=== PATIENT | male | born 1960 | race Caucasian/White ===

== ENCOUNTER 2016-10-13 17:14 | Emergency (ER) | payer OTHER ==
--- NOTE | 2016-10-13 17:50 | ERPHSYRPT ---
- History of Present Illness Time Seen by Provider: 10/13/16 17:43 Source: patient Exam Limitations: no limitations Patient Subjective Stated Complaint: spider bite last night Triage Nursing Assessment: pt states he got bit in his [place] area last night by a spider--did not see the spider. swelling noted to end of penis but no increased redness noted to where he is saying he was bit. appears very nervous and drowsy and is in constant movment with all extremities Physician History: The patient is a 55-year-old male who comes in complaining that he was bitten by an insect or spider while he was in bed last night on the distal part of his penis. It is slightly swollen and itches. He has been taking Benadryl and it is better. A friend of his nurse. She looked at it and told him to come to the emergency room. He also has chronic back pain from a Workmen's Comp. injury and is requesting pain medicine. Timing/Duration: yesterday Quality: itchy Severity: mild Location: genitalia Possible Causes: no cause identified Modifying Factors: Improves With: antihistamine Allergies/Adverse Reactions: acetaminophen [From Percocet] Allergy (Mild, Verified 10/13/16 17:33) uncontrolled itching morphine Allergy (Mild, Verified 10/13/16 17:33) Hives oxycodone HCl [From Percocet] Allergy (Mild, Verified 10/13/16 17:33) uncontrolled itching propoxyphene napsylate [From Darvocet-N 100] Allergy (Mild, Verified 10/13/16 17 :33) Itching pt says not allergic to Home Medications: Tramadol HCl 50 mg [Ultram 50 mg] 50 mg PO QID 10/13/16 [History] Hx Tetanus, Diphtheria Vaccination/Date Given: Yes Hx Influenza Vaccination/Date Given: No Hx Pneumococcal Vaccination/Date Given: No Immunizations Up to Date: Yes - Review of Systems Constitutional: No Fever, No Chills Eyes: No Symptoms Ears, Nose, & Throat: No Symptoms Respiratory: No Cough, No Dyspnea Cardiac: No Chest Pain, No Edema, No Syncope Abdominal/Gastrointestinal: No Abdominal Pain, No Nausea, No Vomiting, No Diarrhea Genitourinary Symptoms: No Dysuria Musculoskeletal: No Back Pain, No Neck Pain Skin: Rash Neurological: No Dizziness, No Focal Weakness, No Sensory Changes Psychological: No Symptoms Endocrine: No Symptoms Hematologic/Lymphatic: No Symptoms Immunological/Allergic: No Symptoms All Other Systems: Reviewed and Negative - Past Medical History Pertinent Past Medical History: Yes Neurological History: No Pertinent History ENT History: No Pertinent History Cardiac History: No Pertinent History Respiratory History: No Pertinent History Endocrine Medical History: No Pertinent History Musculoskeletal History: Fractures GI Medical History: No Pertinent History History: Other Psycho-Social History: Depression Male Reproductive Disorders: No Pertinent History Other Medical History: chronic pain-reflex sympathetic distosrophy. blood in urine-no diagnosis or issues. 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 bilateral arm fx 2006 - Past Surgical History Past Surgical History: Yes Neuro Surgical History: No Pertinent History Cardiac: No Pertinent History Respiratory: No Pertinent History Gastrointestinal: Hernia Repair Genitourinary: No Pertinent History Musculoskeletal: Orthopedic Surgery Male Surgical History: No Pertinent History Other Surgical History: sinus, Right carpal tunnel ,t&a - Social History Smoking Status: Current every day smoker How long have you smoked: 30 Exposure to second hand smoke: No Drug Use: none Patient Lives Alone: Yes - Nursing Vital Signs Nursing Vital Signs: Initial Vital Signs Temperature 98.3 F Temperature Source Oral Pulse Rate 106 Respiratory Rate 18 Blood Pressure [Right Arm] 141/88 Pain Intensity 6 - Physical Exam General Appearance: no apparent distress, alert Eye Exam: PERRL/EOMI, eyes nml inspection Ears, Nose, Throat Exam: normal ENT inspection, pharynx normal, moist mucous membranes Neck Exam: normal inspection, non-tender, supple, full range of motion Respiratory Exam: normal breath sounds, lungs clear, No respiratory distress Cardiovascular Exam: regular rate/rhythm, normal heart sounds Gastrointestinal/Abdomen Exam: soft, mass, No tenderness Rectal Exam: not done Back Exam: normal inspection, normal range of motion, No CVA tenderness, No vertebral tenderness Extremity Exam: normal inspection, normal range of motion Neurologic Exam: alert, oriented x 3, cooperative, normal mood/affect, sensation nml, No motor deficits Skin Exam: other (Examination of the penis reveals an uncircumcised male with a slightly swollen and reddish foreskin with a small puncture wound consistent with an insect or arachnid bite.) - Departure Time of Disposition: 17:54 Departure Disposition: Home Clinical Impression: Insect bite, Back pain Condition: Stable Critical Care Time: No Additional Instructions: You have a possible insect bite to your genitalia. The area is red and swollen. You've been given a prescription for amoxicillin 500 mg 3 times a day for 10 days. Continue to take Benadryl as needed. He also have a complaint of back pain for which she were given Toradol 60 mg IM injection in the ER. Follow -up as needed. Prescriptions: Amoxicillin [Amoxil] 1 cap PO TID #30 capsule
[2016-10-13] MEDS ORDERED: TORAdol 30 mg Injection IM ONE (17:56)
[2016-10-13] MEDS ORDERED: TORAdol 30 mg Injection ONE (17:59)
[2016-10-13 18:11] VITALS: BP 132/70; PULSE 70; O2SAT 100
== END 2016-10-13 18:11 | disposition home or self-care (01) ==
LOC: ED 17:14
DX: S30.862A Insect bite (nonvenomous) of penis, initial encounter (principal); T63.301A Toxic effect of unspecified spider venom, accidental (unintentional), initial encounter
CPT/HCPCS: 96372; 99281; 99284; J1885

== ENCOUNTER 2017-12-03 08:55 | Day surgery (SDC) | payer OTHER ==
--- NOTE | 2017-12-03 08:20 | HP ---
DATE OF SURGERY: 12/03/2017 HISTORY OF PRESENT ILLNESS: The patient is a 56 year-old with history of polyps. No bloody stools. No change in bowel movements. No pain. He is in need of follow up screening colonoscopy. PAST MEDICAL/SURGICAL HISTORY: Biopsy of tongue lesion in October. He had a [place] in the past. Carpal tunnel and hernia repair and colonoscopy in the past. MEDICATIONS: Omeprazole, citalopram, lisinopril, acyclovir, hydrochlorothiazide, Simvastatin, loratadine, Naproxen, Symbicort, triamcinolone and Nystatin. ALLERGIES: MORPHINE, PERCOCET, ACETAMINOPHEN. FAMILY HISTORY: Lung cancer, lupus, thyroid problems. SOCIAL HISTORY: One pack per day smoker. No alcohol abuse. REVIEW OF SYSTEMS: Twelve systems reviewed. No chest pain or palpitations other systems negative or noncontributory as above and per preadmission questionnaire. Pertinent for lung disease, smoking, tension, anxiety, depression, reflux, hypercholesterolemia and hypertension. PHYSICAL EXAMINATION: GENERAL: No acute distress. HEENT: Sclerae nonicteric. NECK: No JVD. CHEST: Equal excursion, nonlabored breathing. CVS: Regular rate and rhythm. ABDOMEN: Soft. No peritoneal signs. EXTREMITIES: No significant edema. NEURO: Alert, oriented, moving extremities symmetrically. No gross motor deficits noted. IMPRESSION: History of polyps, need for follow up screening colonoscopy. I feel he is a candidate. Risks and benefits explained in detail including but not limited to bleeding or infection, small risk of bowel injury or perforation possibly requiring open procedure, risk of missed or nondiagnosis or incomplete exam possibly requiring barium, other studies or procedures, general risk of anesthesia or sedation, risk of bowel prep, postoperative risk of nausea or cramping but not limited to. He understands and agrees to the planned procedure. He has been shown the risk sheet and explained the procedure as mentioned above but not limited to, will proceed with outpatient follow up colonoscopy.
[2017-12-03] MEDS ORDERED: DIPRIVAN 200 MG/20 ML IV ONE (08:56)
[2017-12-03] MEDS ORDERED: Ketamine HCl 50 MG/ML IV ONE (08:56)
[2017-12-03] MEDS ORDERED: Lactated Ringers 1,000 ML IV ONE (09:36)
[2017-12-03] MEDS ORDERED: Lactated Ringers 1,000 ML IV SCH (10:00)
[2017-12-03 12:57] VITALS: BP 113/68; PULSE 89; O2SAT 98
--- NOTE | 2017-12-03 13:40 | OP ---
SURGERY DATE/TIME: 12/03/2017 1050 PREOPERATIVE DIAGNOSIS: History of prior polyps, need for follow up screening colonoscopy. POSTOPERATIVE DIAGNOSES: 1) Poor prep limiting particularly right colon limiting the exam. 2) Mild diverticulosis. 3) Small internal and external hemorrhoids. 4) Very small vague raised lesion versus hyperplastic lesion rectum with nearby adjacent small patchy inflamed area. 5) Prior repair and tattoo sites with normal appearing mucosa. No evidence of past polyp recurrence. PROCEDURES: 1) Colonoscopy to cecum with hot biopsy small vague raised lesion rectum. 2) Cold biopsy of adjacent patchy area of inflammation. SURGEON: Dr. Dean Nelson. ANESTHESIA: MAC. ESTIMATED BLOOD LOSS: Minimal. INDICATIONS: As noted above. Risks and benefits explained in detail but not limited to and consent obtained. DESCRIPTION OF PROCEDURE AND FINDINGS: The patient is taken to the operating room. After official time out and no disagreement with planned procedure, MAC anesthesia induced. Digital rectal exam did not reveal any rectal masses. Video colonoscope inserted and passed up through the tortuous sigmoid, descending, transverse colon. With positioning on his back and external pressure the scope was able to be passed around to the cecum, appendiceal orifice and valve visualized. Prep overall was somewhat poor in the right colon. A large amount of liquidy semi-solid and solid stool limiting the exam this was suction irrigated as well as possible but did limit the exam for small lesions. On slow careful withdrawal of the scope over the next 12 to 15 minutes there were no signs of any large polyps, masses or obstructing lesions. He had what appeared to be some tattoo sites in the left colon that appeared to have normal mucosa, no evidence of any polyp recurrence. Otherwise the scope pulled back. He had some internal and external hemorrhoids. He did have some mild diverticulosis. Back in the rectum he had a very small 1.5 mm to 2 mm vague raised lesion this is removed with hot biopsy forceps with brief bursts of cautery. Good hemostasis noted. There was a nearby patchy area of inflammation whether simple prep irritation or not it is cold biopsied for further evaluation. Good hemostasis noted. Again, he had some small internal and external hemorrhoids. The scope is withdrawn. There was no family available to discuss the findings with. I will see him back in the office next week to go over the results.
== END 2017-12-03 12:35 | disposition home or self-care (01) ==
LOC: SDC 08:55
PROVIDERS: ATTEND Surgery
DX: Z86.010 Personal history of colon polyps (principal); K57.90 Diverticulosis of intestine, part unspecified, without perforation or abscess without bleeding; K64.8 Other hemorrhoids; K64.4 Residual hemorrhoidal skin tags; Z12.11 Encounter for screening for malignant neoplasm of colon; K63.9 Disease of intestine, unspecified; Z79.899 Other long term (current) drug therapy; Z72.0 Tobacco use
CPT/HCPCS: 88305; J2704

== ENCOUNTER 2019-09-10 20:15 | Emergency (ER) | payer OTHER ==
--- NOTE | 2019-09-10 20:25 | ERPHSYRPT ---
- History of Present Illness Time Seen by Provider: 09/10/19 20:25 Source: patient Exam Limitations: no limitations Physician History: 58-year-old gentleman who has a history of depression and is suicidal. Patient states that he has not seen his medical doctor in several months. Patient states that he is tired of living. His plan is that he is getting jumped out in front of a train. Patient did attempt suicide several years ago by overdosing. Patient has been using methamphetamines recently. Patient states he has been lying to the people around him that have been trying to help him. Patient desires inpatient help in a facility in [facility]. Timing/Duration: intermittent, worse Severity of Symptoms-Max: moderate Severity of Symptoms-Current: moderate Context related to: living circumstances, other (Amphetamine abuse, illicit drug abuse) Suicidal thoughts: specific plan Associated Symptoms: depressed, frustrated, suicidal ideation Previous symptoms: same symptoms as today Allergies/Adverse Reactions: acetaminophen [From Percocet] Allergy (Mild, Verified 09/10/19 23:02) uncontrolled itching morphine Allergy (Mild, Verified 09/10/19 23:02) Hives oxycodone HCl [From Percocet] Allergy (Mild, Verified 09/10/19 23:02) uncontrolled itching propoxyphene napsylate [From Darvocet-N 100] Allergy (Mild, Verified 09/10/19 23 :02) Itching pt says not allergic to Home Medications: Budesonide/Formoterol Fumarate [Symbicort 160-4.5 Mcg Inhaler] 10.2 gm IH BID [History] Citalopram Hydrobromide [Citalopram HBr] 20 mg PO DAILY 11/21/17 [History] Lisinopril 10 mg [Zestril 10 MG] 10 mg PO DAILY 11/21/17 [History] Loratadine 10 mg [Claritin 10 mg] 10 mg PO DAILY 11/21/17 [History] Omeprazole 40 mg PO DAILY 11/21/17 [History] Simvastatin 20Mg [Zocor 20Mg] 20 mg PO DAILY 11/21/17 [History] Triamcinolone Acetonide 0.1% [Kenalog 0.1% Ointment] 15 gm TP DAILY [History] hydroCHLOROthiazide [Hydrochlorothiazide] 12.5 mg PO DAILY 11/21/17 [History] Hx Tetanus, Diphtheria Vaccination/Date Given: Yes Hx Influenza Vaccination/Date Given: No Hx Pneumococcal Vaccination/Date Given: No - Past Medical History Pertinent Past Medical History: Yes Neurological History: Migraines ENT History: No Pertinent History Cardiac History: High Cholesterol, Hypertension Respiratory History: COPD Endocrine Medical History: No Pertinent History Musculoskeletal History: Fractures GI Medical History: Esophageal Disorder, GERD, Hemorrhoids, Hernia, Polyps, Ulcer History: Other Psycho-Social History: Depression Male Reproductive Disorders: Scrotal Mass, Other Other Medical History: rsd,spine disc injections, semi accident 2014,. 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 bilateral arm fx 2005 - Past Surgical History Past Surgical History: Yes Neuro Surgical History: No Pertinent History Cardiac: No Pertinent History Respiratory: No Pertinent History Gastrointestinal: Hernia Repair Genitourinary: No Pertinent History Musculoskeletal: Orthopedic Surgery Male Surgical History: No Pertinent History Other Surgical History: sinus, Right carpal tunnel ,t&a, scotol-right testicle "rebuilt" per pt. Groin and testicular hernia repaired per pt. - Social History Smoking Status: Current every day smoker How long have you smoked: 38 Exposure to second hand smoke: Yes Drug Use: marijuana, methamphetamines, cocaine Patient Lives Alone: Yes - Review of Systems Constitutional: No Symptoms Eyes: No Symptoms Ears, Nose, & Throat: No Symptoms Respiratory: No Symptoms Cardiac: No Symptoms Abdominal/Gastrointestinal: No Symptoms Genitourinary Symptoms: No Symptoms Musculoskeletal: No Symptoms Skin: No Symptoms Neurological: No Symptoms Psychological: Drug Abuse, Anxiety, Depression, Suicidal Ideations Endocrine: No Symptoms Hematologic/Lymphatic: No Symptoms Immunological/Allergic: No Symptoms All Other Systems: Reviewed and Negative - Nursing Vital Signs Nursing Vital Signs: Initial Vital Signs Temperature 97.8 F 09/10/19 20:27 Pulse Rate 107 H 09/10/19 20:27 Respiratory Rate 18 09/10/19 20:27 Blood Pressure 166/107 09/10/19 20:27 O2 Sat by Pulse Oximetry 96 09/10/19 20:27 Pain Scale Pain Intensity 3 - Physical Exam General Appearance: no apparent distress, alert, anxiety Eyes, Ears, Nose, Throat Exam: normal ENT inspection, moist mucous membranes Neck Exam: normal inspection, non-tender, supple, full range of motion Respiratory Exam: normal breath sounds, lungs clear, airway intact, No chest tenderness, No respiratory distress Cardiovascular Exam: regular rate/rhythm, normal heart sounds, normal peripheral pulses Gastrointestinal/Abdominal Exam: soft, normal bowel sounds, No tenderness, No guarding Extremities Exam: normal inspection, normal range of motion, No evidence of injury Current Suicidality: has suicide plan Neurological Exam: alert (In front of a train), normal mood/affect, calm, [employer] II -XII nml as tested, oriented x 3 Appearance: appropriate appearance, appropriate insight, no memory impairment Behavior/Eye Contact/Speech: alert & cooperative, good eye contact, normal speech Thoughts/Hallucinations: normal thought pattern, no apparent hallucination Skin Exam: normal color, warm, dry SpO2 Interpretation: normal O2 Delivery: Room Air - Course Nursing assessment & vital signs reviewed: Yes EKG Interpreted by Me: RATE (103), Sinus Rhythm, Sinus Tach, NORMAL AXIS, NORMAL INTERVALS, NORMAL QRS Ordered Tests: Active Orders 24 hr Category Date Time Status EKG-ER Only STAT Care 09/10/19 20:26 Active Psychiatric Consult STAT Cons 09/10/19 20:26 Active ACETAMINOPHEN Stat Lab 09/10/19 20:35 Completed CBC W DIFF Stat Lab 09/10/19 20:35 Completed CMP Stat Lab 09/10/19 20:35 Completed ETHYL ALCOHOL Stat Lab 09/10/19 20:35 Completed SALICYLATE Stat Lab 09/10/19 20:35 Completed UA W/RFX UR CULTURE Stat Lab 09/10/19 21:00 Completed Urine Triage Profile Stat Lab 09/10/19 21:00 Completed Medication Summary Discontinued Medications Generic Name Dose Route Start Last Admin Trade Name Freddie PRN Reason Stop Dose Admin Clonidine 0.2 mg 09/10/19 22:20 09/10/19 22:35 Catapres 0.1 Mg PO 09/10/19 22:21 0.2 mg STAT ONE Administration Clonidine Confirm 09/10/19 22:33 Catapres 0.1 Mg Administered 09/10/19 22:34 Dose 0.2 mg .ROUTE .STK-MED ONE Lorazepam 1 mg 09/10/19 21:20 09/10/19 21:40 Ativan 2 Mg/1 Ml Vial IM 09/10/19 21:21 1 mg STAT ONE Administration Lorazepam Confirm 09/10/19 21:36 Ativan 2 Mg/1 Ml Vial Administered 09/10/19 21:37 Dose 2 mg .ROUTE .STK-MED ONE Lab/Rad Data: Laboratory Result Diagrams 09/10/19 20:35 09/10/19 20:35 Laboratory Results 09/10/19 09/10/19 09/10/19 Range/Units 21:00 21:00 20:35 WBC (4.0-10.5) K/mm3 RBC (4.1-5.6) M/mm3 Hgb (12.5-18.0) gm/dl Hct (42-50) % MCV (78-100) fl MCH (26-32) pg MCHC (32-36) g/dl RDW (11.5-14.0) % Plt Count (150-450) K/mm3 MPV (7.5-11.0) fl Gran % (36.0-66.0) % Eos # (Auto) (0-0.5) Absolute Lymphs (auto) (1.0-4.6) Absolute Monos (auto) (0.0-1.3) Lymphocytes % (24.0-44.0) % Monocytes % (0.0-12.0) % Eosinophils % (0.00-5.0) % Basophils % (0.0-0.4) % Absolute Granulocytes (1.4-6.9) Basophils # (0-0.4) Sodium 140 (137-145) mmol/L Potassium 4.0 (3.5-5.1) mmol/L Chloride 106 (98-107) mmol/L Carbon Dioxide 26 (22-30) mmol/L Anion Gap 11.5 (5-15) MEQ/L BUN 24 H (9-20) mg/dL Creatinine 1.01 (0.66-1.25) mg/dL Estimated GFR > 60.0 ML/MIN Glucose 112 H (74-106) mg/dL Calcium 8.8 (8.4-10.2) mg/dL Total Bilirubin 0.30 (0.2-1.3) mg/dL AST 21 (17-59) U/L ALT 17 (0-50) U/L Alkaline Phosphatase 103 (38-126) U/L Serum Total Protein 6.8 (6.3-8.2) g/dL Albumin 3.8 (3.5-5.0) g/dL Urine Color YELLOW (YELLOW) Urine Appearance CLEAR (CLEAR) Urine pH 5.0 (5-6) Ur Specific Wisner 1.024 (1.005-1.025) Urine Protein NEGATIVE (Negative) Urine Ketones NEGATIVE (NEGATIVE) Urine Blood SMALL (0-5) Aamir/ul Urine Nitrite NEGATIVE (NEGATIVE) Urine Bilirubin NEGATIVE (NEGATIVE) Urine Urobilinogen NEGATIVE (0-1) mg/dL Ur Leukocyte Esterase NEGATIVE (NEGATIVE) Urine WBC (Auto) NONE (0-5) /HPF Urine RBC (Auto) 0-2 (0-2) /HPF U Epithel Cells (Auto) NONE (FEW) /HPF Urine Bacteria (Auto) NONE (NEGATIVE) /HPF Urine Mucus (Auto) SLIGHT (NEGATIVE) /HPF Urine Culture Reflexed NO (NO) Urine Glucose NEGATIVE (NEGATIVE) mg/dL Salicylates 1.0 L (2-20) mg/dL Urine Opiates Level NEGATIVE (NEGATIVE) Ur Methadone NEGATIVE (NEGATIVE) Acetaminophen < 10 L (10-30) ug/ml Urine Barbiturates NEGATIVE (NEGATIVE) Ur Phencyclidine (PCP) NEGATIVE (NEGATIVE) Urine Amphetamine POSITIVE (NEGATIVE) U Benzodiazepine Level NEGATIVE (NEGATIVE) Urine Cocaine NEGATIVE (NEGATIVE) Urine Marijuana (THC) NEGATIVE (NEGATIVE) Ethyl Alcohol < 10 (0-10) mg/dL 20 Range/Units 20:35 WBC 9.0 (4.0-10.5) K/mm3 RBC 4.68 (4.1-5.6) M/mm3 Hgb 12.4 L (12.5-18.0) gm/dl Hct 38.7 L (42-50) % MCV 82.7 (78-100) fl MCH 26.5 (26-32) pg MCHC 32.0 (32-36) g/dl RDW 16.9 H (11.5-14.0) % Plt Count 366 (150-450) K/mm3 MPV 9.0 (7.5-11.0) fl Gran % 51.4 (36.0-66.0) % Eos # (Auto) 0.50 (0-0.5) Absolute Lymphs (auto) 2.92 (1.0-4.6) Absolute Monos (auto) 0.88 (0.0-1.3) Lymphocytes % 32.5 (24.0-44.0) % Monocytes % 9.8 (0.0-12.0) % Eosinophils % 5.6 H (0.00-5.0) % Basophils % 0.7 (0.0-0.4) % Absolute Granulocytes 4.63 (1.4-6.9) Basophils # 0.06 (0-0.4) Sodium (137-145) mmol/L Potassium (3.5-5.1) mmol/L Chloride (98-107) mmol/L Carbon Dioxide (22-30) mmol/L Anion Gap (5-15) MEQ/L BUN (9-20) mg/dL Creatinine (0.66-1.25) mg/dL Estimated GFR ML/MIN Glucose (74-106) mg/dL Calcium (8.4-10.2) mg/dL Total Bilirubin (0.2-1.3) mg/dL AST (17-59) U/L ALT (0-50) U/L Alkaline Phosphatase (38-126) U/L Serum Total Protein (6.3-8.2) g/dL Albumin (3.5-5.0) g/dL Urine Color (YELLOW) Urine Appearance (CLEAR) Urine pH (5-6) Ur Specific Wisner (1.005-1.025) Urine Protein (Negative) Urine Ketones (NEGATIVE) Urine Blood (0-5) Aamir/ul Urine Nitrite (NEGATIVE) Urine Bilirubin (NEGATIVE) Urine Urobilinogen (0-1) mg/dL Ur Leukocyte Esterase (NEGATIVE) Urine WBC (Auto) (0-5) /HPF Urine RBC (Auto) (0-2) /HPF U Epithel Cells (Auto) (FEW) /HPF Urine Bacteria (Auto) (NEGATIVE) /HPF Urine Mucus (Auto) (NEGATIVE) /HPF Urine Culture Reflexed (NO) Urine Glucose (NEGATIVE) mg/dL Salicylates (2-20) mg/dL Urine Opiates Level (NEGATIVE) Ur Methadone (NEGATIVE) Acetaminophen (10-30) ug/ml Urine Barbiturates (NEGATIVE) Ur Phencyclidine (PCP) (NEGATIVE) Urine Amphetamine (NEGATIVE) U Benzodiazepine Level (NEGATIVE) Urine Cocaine (NEGATIVE) Urine Marijuana (THC) (NEGATIVE) Ethyl Alcohol (0-10) mg/dL - Progress Progress: improved Progress Note: 09/10/19 23:34 The staff position at [facility], Dr. Combs, accepts this patient for inpatient psychiatric management. Counseled pt/family regarding: lab results, diagnosis - Departure Departure Disposition: Transfer Clinical Impression: Depression with suicidal ideation Condition: Stable Critical Care Time: No Referrals: AUGUSTINA AUGUSTE [Primary Care Provider] -
[2019-09-10 20:49] LABS: Absolute Neutrophil Ct (ANC) 4.63 (1.4-6.9); BASOPHIL % 0.7 % (0.0-0.4); Basophil (Absolute #) 0.06 (0-0.4); Eosinophil % 5.6 % (0.00-5.0); Hematocrit 38.7 % (42-50); Hemoglobin 12.4 gm/dl (12.5-18.0); Lymphocyte (Absolute #) 2.92 (1.0-4.6); Lymphocytes % 32.5 % (24.0-44.0); Mean Cell Volume 82.7 fl (78-100); Mean Corpuscular Hemoglobin 26.5 pg (26-32); Monocyte (Absolute #) 0.88 (0.0-1.3); Monocytes % 9.8 % (0.0-12.0); Neutrophil % 51.4 % (36.0-66.0); Platelet Count 366 K/mm3 (150-450); Red Blood Count 4.68 M/mm3 (4.1-5.6); Red Cell Distribution Width 16.9 % (11.5-14.0)
[2019-09-10 21:00] LABS: ACETAMINOPHEN < 10 ug/ml (10-30); ALBUMIN 3.8 g/dL (3.5-5.0); ALKALINE PHOSPHATASE 103 U/L (38-126); ANION GAP 11.5 MEQ/L (5-15); BLOOD UREA NITROGEN 24 mg/dL (9-20); CHLORIDE 106 mmol/L (98-107); Calcium 8.8 mg/dL (8.4-10.2); Carbon Dioxide 26 mmol/L (22-30); Creatinine 1 1.01 mg/dL (0.66-1.25); ETHYL ALCOHOL < 10 mg/dL (0-10); Glucose 112 mg/dL (74-106); SGOT/AST 21 U/L (17-59); SGPT/ALT 17 U/L (0-50); SODIUM 140 mmol/L (137-145); Total Protein 6.8 g/dL (6.3-8.2)
[2019-09-10] MEDS ORDERED: Ativan 2 MG/1 ML VIAL IM ONE (21:20)
[2019-09-10 21:24] LABS: Barbiturate,Urine NEGATIVE (NEGATIVE); Benzodiazepine,Urine NEGATIVE (NEGATIVE); Cocaine,Urine NEGATIVE (NEGATIVE); Methadone,Urine NEGATIVE (NEGATIVE); Opiate,Urine NEGATIVE (NEGATIVE); PCP,Urine NEGATIVE (NEGATIVE); THC,Urine NEGATIVE (NEGATIVE)
[2019-09-10 21:34] LABS: Appearance CLEAR (CLEAR); Bilirubin NEGATIVE (NEGATIVE); Blood SMALL Ery/ul (0-5); Glucose NEGATIVE (NEGATIVE); Ketones NEGATIVE (NEGATIVE); Leukocyte Esterase NEGATIVE (NEGATIVE); Mucus SLIGHT /HPF (NEGATIVE); Nitrite NEGATIVE (NEGATIVE); Protein,Urine Dip NEGATIVE (Negative); RBC 0-2 /HPF (0-2); Specific Gravity 1.024 (1.005-1.025); Urobilinogen NEGATIVE mg/dL (0-1)
[2019-09-10] MEDS ORDERED: Ativan 2 MG/1 ML VIAL ONE (21:36)
[2019-09-10 21:48] LABS: Amphetamine,Urine POSITIVE (NEGATIVE)
[2019-09-10] MEDS ORDERED: Catapres 0.1 MG PO ONE (22:20)
[2019-09-10] MEDS ORDERED: Catapres 0.1 MG ONE (22:33)
[2019-09-10 23:28] VITALS: O2SAT 98
[2019-09-11 01:11] VITALS: BP 143/99; PULSE 98
== END 2019-09-11 00:40 ==
LOC: ED 20:15
DX: F32.9 Major depressive disorder, single episode, unspecified (principal); R45.851 Suicidal ideations; Z72.0 Tobacco use; Z79.899 Other long term (current) drug therapy; I10 Essential (primary) hypertension; J44.9 Chronic obstructive pulmonary disease, unspecified; K21.9 Gastro-esophageal reflux disease without esophagitis
CPT/HCPCS: 36415; 80053; 80307; 81001; 85025; 93005; 96372; 99285; G0480; G0481; 90791; J2060; A9270-GY

== ENCOUNTER 2024-09-11 17:36 | Emergency (ER) | payer OTHER ==
[2024-09-11 17:53] VITALS: RESP 18; TEMP 97.2
[2024-09-11] MEDS: NORCO 5/325 MG PO ONE (18:22)
[2024-09-11] MEDS ORDERED: TORAdol 30 mg Injection ONE (18:25)
[2024-09-11] MEDS: TORAdol 30 mg Injection IM ONE (18:27)
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
[2024-09-11 19:03] VITALS: PULSE 98
[2024-09-11 20:02] VITALS: BP 110/81
[2024-09-11 20:34] VITALS: O2SAT 95
--- NOTE | 2024-09-12 07:49 | XRAY ---
Indication: Pain, swelling, and bruising following injury. Comparison: None 3 view right ankle demonstrates nondisplaced slightly comminuted lateral malleolus fracture with adjacent soft tissue swelling. Elsewhere tiny spurring distal tibia posteriorly/posterior calcaneus and small well-circumscribed medial malleolus tip heterotopic ossification. Foot reported separately.
--- NOTE | 2024-09-12 07:51 | XRAY ---
Indication: Pain, swelling, and bruising following injury. Comparison: None 3 nonweightbearing views right foot demonstrates tiny spurring posterior calcaneus. No other bony, articular, or soft tissue abnormalities. Ankle reported separately.
== END 2024-09-11 20:15 | disposition home or self-care (01) ==
LOC: ED 17:36
DX: S82.841A Displaced bimalleolar fracture of right lower leg, initial encounter for closed fracture (principal); S90.31XA Contusion of right foot, initial encounter; V29.99XA Rider (driver) (passenger) of other motorcycle injured in unspecified traffic accident, initial encounter; E78.5 Hyperlipidemia, unspecified; I10 Essential (primary) hypertension; Z79.891 Long term (current) use of opiate analgesic; Z79.899 Other long term (current) drug therapy; Z72.0 Tobacco use
CPT/HCPCS: 29515; 73610; 73630; 96372; 99283; 99284; J1885